=== PATIENT | female | born 1995 | race African-American/Black ===

== ENCOUNTER → 2017-07-04 14:56 | Outpatient (CLI) | payer OTHER ==
[2017-07-04 16:04] LABS: UDS - AMPHET NEGATIVE QUAL (NEGATIVE); UDS - BARB NEGATIVE QUAL (NEGATIVE); UDS - BENZO NEGATIVE QUAL (NEGATIVE); UDS - COCAINE NEGATIVE QUAL (NEGATIVE); UDS - METH NEGATIVE QUAL (NEGATIVE); UDS - OPIATE NEGATIVE QUAL (NEGATIVE); UDS - PCP NEGATIVE QUAL (NEGATIVE); UDS - THC NEGATIVE QUAL (NEGATIVE)
[2017-07-04 16:18] LABS: APPEARANCE HAZY (CLEAR); COLOR YELLOW (YELLOW)
[2017-07-04 16:19] LABS: BILIRUBIN NEGATIVE (NEGATIVE); GLUCOSE NEGATIVE (NEGATIVE); KETONE NEGATIVE (NEGATIVE); LEUKOCYTE ESTERASE 2+ (NEGATIVE); NITRITE NEGATIVE (NEGATIVE); PROTEIN NEGATIVE (NEGATIVE); UROBILINOGEN NORMAL (NORMAL)
[2017-07-04 16:20] LABS: AMORPHOUS SEDIMENT <1+ /lpf (NONE SEEN); BACTERIA FEW /hpf (NONE SEEN); EPITHELIAL CELLS 0-5 /hpf (0-5)
== END | disposition home or self-care (01) ==
LOC: D.LDO 14:56
PROVIDERS: Obstetrics & Gynecology
DX: Z34.90 Encounter for supervision of normal pregnancy, unspecified, unspecified trimester (principal); R10.9 Unspecified abdominal pain

== ENCOUNTER 2018-07-28 16:08 | Emergency (ER) | payer MEDICAID ==
[~2018-07-28] VITALS: Ht 152.4 cm; Wt 53.6 kg
[2018-07-28 16:13] VITALS: BP 103/80; Ht 152.4 cm; Wt 53.6 kg
[2018-07-28 16:40] LABS: BASOPHILS 0.5 % (0-2); EOSINOPHILS 0.9 % (0-7); HEMATOCRIT 36.2 % (36.0-48.0); HEMOGLOBIN 12.3 g/dL (12-16); LYMPHOCYTES 30.9 % (15-50); MCH 28.7 pg (26.0-34.0); MCV 84.6 fL (80.0-100.0); MONOCYTES 8.3 % (2-11); NEUTROPHILS 59.4 % (40-80); PLATELET COUNT 220 10x3/uL (130-400); RBC 4.28 10x6/uL (4.00-5.40); RDW 12.7 % (11.5-14.5); WBC 4.2 10x3/uL (4.8-10.8)
[2018-07-28] MEDS ORDERED: TORADOL10 MG PO (17:27)
== END 2018-07-28 18:45 | disposition home or self-care (01) ==
LOC: D.ER 16:08
PROVIDERS: Emergency Medicine
DX: N93.9 Abnormal uterine and vaginal bleeding, unspecified (principal); N94.6 Dysmenorrhea, unspecified

== ENCOUNTER 2019-06-19 19:23 | Emergency (ER) | payer SELFPAY ==
[~2019-06-19] VITALS: Ht 152.4 cm; Wt 58.2 kg
[~2019-06-19 19:23] MED LIST: TORADOL10 MG PO
[2019-06-19 19:31] VITALS: Ht 152.4 cm; Wt 58.2 kg
[2019-06-19 20:22] LABS: BASOPHILS 0.1 % (0-2); EOSINOPHILS 0.6 % (0-7); HEMATOCRIT 33.1 % (36.0-48.0); HEMOGLOBIN 11.4 g/dL (12-16); IMMATURE GRANULOCYTES 0.3 % (0-5); LYMPHOCYTES 16.8 % (15-50); MCH 29.3 pg (26.0-34.0); MCHC 34.4 g/dL (31.0-37.0); MCV 85.1 fL (80.0-100.0); MEAN PLATELET VOLUME 10.2 fL (7.4-10.4); MONOCYTES 6.4 % (2-11); NEUTROPHILS 75.8 % (40-80); PLATELET COUNT 200 10x3/uL (130-400); RBC 3.89 10x6/uL (4.00-5.40); RDW 12.7 % (11.5-14.5)
[2019-06-19 20:34] LABS: APPEARANCE CLEAR (CLEAR); BACTERIA MODERATE /hpf (NONE SEEN); BILIRUBIN NEGATIVE (NEGATIVE); COLOR YELLOW (YELLOW); EPITHELIAL CELLS 0-5 /hpf (0-5); GLUCOSE NEGATIVE (NEGATIVE); KETONE NEGATIVE (NEGATIVE); NITRITE NEGATIVE (NEGATIVE); PROTEIN NEGATIVE (NEGATIVE); RED CELLS - URINE OCC /hpf (0-5); UROBILINOGEN NORMAL (NORMAL); WHITE CELLS - URINE 0-5 /hpf (0-5)
[2019-06-19 20:34] LABS: ALKALINE PHOSPHATASE 55 U/L (46-116); ALT (SGPT) 10 U/L (10-68); BILIRUBIN - TOTAL 0.14 mg/dL (0.2-1.3); CALC OSMOLALITY 267 mosm/kg (275-300); CALCIUM 8.6 mg/dL (8.5-10.1); CARBON DIOXIDE 26.3 mmol/L (21.0-32.0); CHLORIDE - SERUM 103 mmol/L (98-107); CREATININE - SERUM 0.8 mg/dL (0.6-1.3); GLUCOSE 76 mg/dL (74-106); POTASSIUM - SERUM 3.4 mmol/L (3.5-5.1); PROTEIN - SERUM 6.7 g/dL (6.4-8.2); SODIUM 135 mmol/L (136-145); UREA NITROGEN 9 mg/dL (7-18); eGFR NON AFRICAN AMERICAN > 90 mL/min (90-120)
[2019-06-19 21:00] LABS: HCG - QUANTITATIVE (MATERNAL) 16136 mIU/mL
[2019-06-19 23:49] VITALS: BP 111/71
[2019-06-23 16:08] LABS: CHLAMYDIA TRACHOMATIS, NAA Negative (Negative)
== END 2019-06-19 23:35 | disposition home or self-care (01) ==
LOC: D.ER 19:23
PROVIDERS: Family Medicine
DX: O26.852 Spotting complicating pregnancy, second trimester (principal); Z3A.16 16 weeks gestation of pregnancy; Z20.2 Contact with and (suspected) exposure to infections with a predominantly sexual mode of transmission

== ENCOUNTER → 2019-08-13 08:49 | Outpatient (CLI) | payer MEDICAID ==
[2019-06-19 19:31] VITALS: BMI 25.0
[2019-08-13 12:37] LABS: APPEARANCE HAZY (CLEAR); BACTERIA MODERATE /hpf (NONE SEEN); BILIRUBIN NEGATIVE (NEGATIVE); COLOR YELLOW (YELLOW); EPITHELIAL CELLS 0-5 /hpf (0-5); GLUCOSE NEGATIVE (NEGATIVE); KETONE NEGATIVE (NEGATIVE); MUCUS <1+ /lpf (NONE SEEN); NITRITE NEGATIVE (NEGATIVE); PROTEIN NEGATIVE (NEGATIVE); RED CELLS - URINE OCC /hpf (0-5); UROBILINOGEN NORMAL (NORMAL); WHITE CELLS - URINE 0-5 /hpf (0-5); YEAST >1+ WITH HYPHAE /hpf (NONE SEEN)
[2019-08-17 17:08] LABS: CHLAMYDIA TRACHOMATIS, NAA Negative (Negative)
== END | disposition home or self-care (01) ==
LOC: D.LDO 08:49
PROVIDERS: ATTEND Obstetrics & Gynecology
DX: O26.899 Other specified pregnancy related conditions, unspecified trimester (principal); Z3A.00 Weeks of gestation of pregnancy not specified; R04.0 Epistaxis

== ENCOUNTER → 2019-09-18 12:52 | Outpatient (CLI) | payer MEDICAID ==
[2019-06-19 19:31] VITALS: BMI 25.0
[2019-09-18 13:37] LABS: APPEARANCE CLEAR (CLEAR); COLOR STRAW (YELLOW)
[2019-09-18 13:38] LABS: BILIRUBIN NEGATIVE (NEGATIVE); GLUCOSE NEGATIVE (NEGATIVE); KETONE NEGATIVE (NEGATIVE); NITRITE NEGATIVE (NEGATIVE); PROTEIN NEGATIVE (NEGATIVE); SPECIFIC GRAVITY 1.005 (1.005-1.020); UROBILINOGEN NORMAL (NORMAL)
== END | disposition home or self-care (01) ==
LOC: D.LDO 12:52
PROVIDERS: ATTEND Obstetrics & Gynecology
DX: O47.9 False labor, unspecified (principal)

== ENCOUNTER 2019-09-28 18:38 | Outpatient (CLI) | payer MEDICAID ==
[~2019-09-28] VITALS: Ht 152.4 cm; Wt 67.3 kg
[2019-09-28 18:45] VITALS: Ht 152.4 cm; Wt 67.3 kg
[2019-09-28 20:46] VITALS: BP 99/49
[2019-09-28 21:46] LABS: APPEARANCE CLEAR (CLEAR); BILIRUBIN NEGATIVE (NEGATIVE); COLOR YELLOW (YELLOW); GLUCOSE NEGATIVE (NEGATIVE); KETONE NEGATIVE (NEGATIVE); NITRITE NEGATIVE (NEGATIVE); PROTEIN TRACE mg/dL (NEGATIVE); UROBILINOGEN NORMAL (NORMAL)
[2019-09-28 22:04] LABS: BACTERIA FEW /hpf (NEGATIVE); EPITHELIAL CELLS OCC /hpf (0-5); RED CELLS - URINE OCC /hpf (0-5); WHITE CELLS - URINE 0-5 /hpf (NEGATIVE)
[2019-09-28 22:22] LABS: BASOPHILS 0 % (0-2); EOSINOPHILS 0.7 % (0-7); HEMOGLOBIN 9.7 g/dL (12-16); IMMATURE GRANULOCYTES 0.3 % (0-5); MCH 27.2 pg (26.0-34.0); MCHC 32.3 g/dL (31.0-37.0); MCV 84.3 fL (80.0-100.0); MEAN PLATELET VOLUME 10.1 fL (7.4-10.4); MONOCYTES 8.8 % (2-11); NEUTROPHILS 73.2 % (40-80); PLATELET COUNT 196 10x3/uL (130-400); RBC 3.56 10x6/uL (4.00-5.40); RDW 14.5 % (11.5-14.5); WBC 7.4 10x3/uL (4.8-10.8)
[2019-09-28 22:29] LABS: APTT 20.6 SECONDS (22.8-39.4); INR 1.01 (0.85-1.17); PROTIME 12.8 SECONDS (11.6-15.0)
[2019-10-05 10:31] VITALS: Ht 152.4 cm; Wt 67.3 kg
== END 2019-09-28 23:37 ==
LOC: D.LDO 18:38 → D.ER 18:38 → EDSTATUS 21:04 → D.LD 21:05 → D.LDO 23:37
PROVIDERS: Obstetrics & Gynecology; ATTEND Emergency Medicine
DX: O26.899 Other specified pregnancy related conditions, unspecified trimester (principal); Z3A.32 32 weeks gestation of pregnancy; R10.9 Unspecified abdominal pain

== ENCOUNTER → 2019-10-03 00:28 | Outpatient (CLI) | payer MEDICAID ==
[2019-09-28 18:45] VITALS: BMI 28.9
[2019-10-03 01:31] LABS: APPEARANCE CLEAR (CLEAR); COLOR YELLOW (YELLOW)
[2019-10-03 01:32] LABS: BILIRUBIN NEGATIVE (NEGATIVE); GLUCOSE NEGATIVE (NEGATIVE); KETONE LARGE mg/dL (NEGATIVE); NITRITE NEGATIVE (NEGATIVE); PROTEIN NEGATIVE (NEGATIVE); SPECIFIC GRAVITY 1.015 (1.005-1.020); UROBILINOGEN NORMAL (NORMAL)
== END | disposition home or self-care (01) ==
LOC: D.LDO 00:28
PROVIDERS: ATTEND Obstetrics & Gynecology
DX: O26.899 Other specified pregnancy related conditions, unspecified trimester (principal); O47.03 False labor before 37 completed weeks of gestation, third trimester; Z3A.32 32 weeks gestation of pregnancy; R35.0 Frequency of micturition; R51 Headache; R11.2 Nausea with vomiting, unspecified

== ENCOUNTER 2019-10-05 05:47 | Inpatient (IN) | payer MEDICAID ==
[~2019-10-05] VITALS: Ht 152.4 cm; Wt 67.1 kg
[2019-10-05 07:02] LABS: BASOPHILS 0.1 % (0-2); EOSINOPHILS 0.5 % (0-7); HEMATOCRIT 30.3 % (36.0-48.0); HEMOGLOBIN 9.4 g/dL (12-16); IMMATURE GRANULOCYTES 0.1 % (0-5); LYMPHOCYTES 21.4 % (15-50); MCH 26.7 pg (26.0-34.0); MCV 86.1 fL (80.0-100.0); MEAN PLATELET VOLUME 10.2 fL (7.4-10.4); MONOCYTES 10.5 % (2-11); NEUTROPHILS 67.4 % (40-80); PLATELET COUNT 192 10x3/uL (130-400); RBC 3.52 10x6/uL (4.00-5.40); RDW 15.2 % (11.5-14.5); WBC 7.3 10x3/uL (4.8-10.8)
[2019-10-05 08:21] LABS: UDS - AMPHET NEGATIVE QUAL (NEGATIVE); UDS - BARB NEGATIVE QUAL (NEGATIVE); UDS - BENZO NEGATIVE QUAL (NEGATIVE); UDS - COCAINE NEGATIVE QUAL (NEGATIVE); UDS - OPIATE NEGATIVE QUAL (NEGATIVE); UDS - PCP NEGATIVE QUAL (NEGATIVE); UDS - THC NEGATIVE QUAL (NEGATIVE)
[2019-10-05 08:37] LABS: APPEARANCE CLEAR (CLEAR); BACTERIA FEW /hpf (NEGATIVE); BILIRUBIN NEGATIVE (NEGATIVE); COLOR YELLOW (YELLOW); EPITHELIAL CELLS 0-5 /hpf (0-5); GLUCOSE NEGATIVE (NEGATIVE); KETONE MODERATE mg/dL (NEGATIVE); MUCUS <1+ /lpf (NONE SEEN); NITRITE NEGATIVE (NEGATIVE); PROTEIN NEGATIVE (NEGATIVE); RED CELLS - URINE 0-5 /hpf (0-5); SPECIFIC GRAVITY 1.015 (1.005-1.020); WHITE CELLS - URINE 0-5 /hpf (NEGATIVE)
[2019-10-05 10:31] VITALS: BP 100/51; Ht 152.4 cm; Wt 67.1 kg
[2019-10-05 13:35] VITALS: BP 107/71
--- NOTE | 2019-10-05 13:35 | NUR ---
PT RECEIVED FROM L&D IN STABLE CONDITION. PT W/ NO C/O AT THIS TIME. FUNDUS FIRM AT -1 MIDLINE WITH SCANT BLEEDING. PT STATES PAIN AT A 0.
--- NOTE | 2019-10-05 14:50 | NUR ---
PT UP TO RESTROOM & ABLE TO VOID W/O DIFFICULTY. PT THEN UP WALKING IN HALLS WITH STEADY GAIT.
[2019-10-05 16:00] VITALS: BP 95/57
--- NOTE | 2019-10-05 16:04 | NUR ---
PT IN SHOWER AT THIS TIME.
--- NOTE | 2019-10-05 16:20 | NUR ---
PT OUT OF SHOWER. PT W/ NO C/O AT THIS TIME. PT IN STABLE CONDITION.
--- NOTE | 2019-10-05 17:33 | NUR ---
pt c/o pain, pain meds given see emar. pt awake & alert w/ no other c/o at this time. srupx2 call light w/in reach.
--- NOTE | 2019-10-05 17:50 | NUR ---
PT'S S.O. VISITING AT THIS TIME.
--- NOTE | 2019-10-05 18:16 | NUR ---
PT SITTING UP IN BED W/ NO C/O AT THIS TIME. PT W/ SEVERAL VISITORS IN ROOM AT THIS TIME. SRUPX2 CALL LIGHT W.IN REACH.
--- NOTE | 2019-10-05 18:59 | NUR ---
PM ROUNDS MADE, PT VISITING WITH FAMILY AND FRIENDS, INFORMED PT THAT I WILL BE BACK SHORTLY TO DO ASSESSMENT, PT VERBALIZES UNDERSTANDING, DENIES NEEDS AT THIS TIME
[2019-10-05 20:00] VITALS: BP 115/71
--- NOTE | 2019-10-05 20:00 | NUR ---
PT IS AWAKE AND ALERT RESTING IN BED. FOB AT BEDSIDE. ASSESSMENT COMPLETE PER FLOWSHEET. VSS. BS CLEAR IN ALL LOBES. BS ACTIVE X4 QUADRANTS. FUNDUS FIRM AND 2 BELOW UMB. SCANT AMOUNT OF LOCHIA NOTED ON PERIPAD. PT REPORTS THAT SHE IS PASSING GAS AND VOIDING WITHOUT DIFFICULTY. SL TO R. AC. PT REPORTS THAT THE S/L IS UNCOMFORTABLE WHEN SHE IS BENDING HER ARM. THE SITE IS WITHOUT OUT REDNESS OR EDEMA. PT INFORMED THAT SHE WILL HAVE A CBC DRAWN IN THE MORNING AND THAT IF HER BLOOD COUNTS COME BACK LOW THAT THE IV MAY HAVE TO BE RESITED. PT STATED THAT SHE DOES NOT WANT THE SL TO BE REMOVED AT THIS TIME. POC DISCUSSED AT THIS TIME INCLUDING PAIN MANAGEMENT, LAB DRAW IN THE AM. WATER PITCHER FILLED. PT INSTRUCTED TO NOTIFY NURSE WITH ANY PROBLEMS, NEEDS, OR CONCERNS, VERBALIZED UNDERSTANDING. BED IN LOW POSITION, SRUP X2, CALL LIGHT AND TELEPHONE WITHIN PT'S REACH.
--- NOTE | 2019-10-05 21:05 | NUR ---
PT REQUESTING A BREAST PUMP. INSTRUCTED PT TO NOTIFY NBN TO GET ONE. NO OTHER REQUEST MADE AT THIS TIME. VERBALIZED UNDERSTANDING.
--- NOTE | 2019-10-05 21:45 | NUR ---
PT SITTING IN CHAIR PUMPING ONE BREAST. PT REPORTS THAT HER ARM WITH THE SL HURTS TO BEND TO PUMP BOTH BREAST. PT REQUEST THAT THE SL BE REMOVED. PT WAS REMINDED THAT AM LAB WILL BE DRAWN AND IF HER LABS ARE LOW THE IV MAY HAVE TO BE PUT BACK IN. PT STATED THAT SHE WAS OK WITH IT BEING REMOVED. SL REMOVED AT THIS TIME PER PT REQUEST. NO OTHER REQUEST MADE. INSTRUCTED PT TO NOTIFY NURSE WITH ANY PROBLEMS, NEEDS, OR CONCERNS. VERBALIZED UNDERSTANDING.
--- NOTE | 2019-10-05 22:20 | NUR ---
PT AMB TO DIABETES EDUCATOR, REPORTS JUST FINISHED PUMPING, PT SHOWN NSY TO TAKE BREAST MILK FOR STORAGE, THIS RN AND PT TO NSY, BREAST MILK LABELED AND LILLY FIELD, RN PROPERLY STORES BREAST MILK, PT BACK TO ROOM, C/O CRAMPING, WILL ADM AVA WHEN DUE, PT VERBALIZES UNDERSTANDING, STATES "I AM GOING TO TRY AND TAKE A LITTLE NAP BEFORE I HAVE TO PUMP AGAIN", DENIES NEEDS AT THIS TIME
--- NOTE | 2019-10-06 00:18 | NUR ---
PT SITTING UP IN CHAIR PUMPING BREAST. WATER PITCHER FILLED. MOTRIN 600MG GIVEN PO FOR C/O ABD CRAMPING. NO OTHER REQUEST MADE. PT INSTRUCTED TO NOTIFY NURSE WITH ANY OTHER PROBLEMS, NEEDS, OR CONCERNS. VERBALIZED UNDERSTANDING.
--- NOTE | 2019-10-06 01:12 | NUR ---
PT RESTING COMFORTABLY IN BED WITH LIGHTS OFF. BED IN LOW POSTION, SRUP X2, CALL LIGHT.
--- NOTE | 2019-10-06 03:07 | NUR ---
PT RESTING IN BED WITH EYES CLOSED. RESPIRATIONS EVEN AND UNLABORED. NO DISTRESS NOTED. BED IN LOW POSITION. SRUP X2, CALL LIGHT WITHIN PTS REACH.
--- NOTE | 2019-10-06 03:47 | NUR ---
PT RESTING IN BED WITH EYES CLOSED. RESPIRATIONS EVEN AND UNLABORED. BED IN LOW POSITION, SRUP X2, CALL LIGHT WITHIN PTS REACH.
--- NOTE | 2019-10-06 06:02 | NUR ---
PT RESTING IN BED WITH EYES CLOSED. RESPIRATIONS EVEN AND UNLABORED. NO DISTRESS NOTED. BED IN LOW POSITION. SRUP X2. CALL LIGHT WITHIN PTS REACH.
--- NOTE | 2019-10-06 07:25 | NUR ---
LAB IN ROOM AT THIS TIME.
[2019-10-06 07:58] LABS: BASOPHILS 0.1 % (0-2); EOSINOPHILS 0.8 % (0-7); HEMATOCRIT 28.4 % (36.0-48.0); HEMOGLOBIN 8.9 g/dL (12-16); IMMATURE GRANULOCYTES 0.1 % (0-5); LYMPHOCYTES 18.6 % (15-50); MCH 26.5 pg (26.0-34.0); MCHC 31.3 g/dL (31.0-37.0); MCV 84.5 fL (80.0-100.0); MEAN PLATELET VOLUME 10.3 fL (7.4-10.4); MONOCYTES 10.2 % (2-11); NEUTROPHILS 70.2 % (40-80); PLATELET COUNT 188 10x3/uL (130-400); RBC 3.36 10x6/uL (4.00-5.40); RDW 15.1 % (11.5-14.5); WBC 7.4 10x3/uL (4.8-10.8)
[2019-10-06 08:11] LABS: RAPID PLASMA REAGIN Non Reactive (Non Reactive)
--- NOTE | 2019-10-06 08:45 | NUR ---
PT ON THE PHONE W/ SPIRITISM & PUMPING AT THIS TIME.
[2019-10-06 09:00] VITALS: BP 108/62
--- NOTE | 2019-10-06 09:18 | NUR ---
M/S FOR DR. REINOSO FOR D/C ORDER.
--- NOTE | 2019-10-06 09:50 | NUR ---
DR. REINOSO RETURNED CALL & GAVE TELEPHONE ORDER APRIL D/C PT TODAY.
--- NOTE | 2019-10-06 12:00 | NUR ---
D/C INSTRUCTIONS REVIEWED W/ PT AT THIS TIME. PT GIVEN WRITTEN & VERBAL INSTRUCTIONS. PT VOICED UNDERSTNADING OF ALL INSTRUCTIONS. PT GIVEN BREASTMILK IN NSY FRIDGE TO TAKE AT THIS TIME.
--- NOTE | 2019-10-06 12:14 | NUR ---
PT DISCHARGED & WHEELED OFF UNIT BY VOLUNTEER AT THIS TIME. PT IN STABLE CONDITION.
== END 2019-10-06 12:12 | disposition home or self-care (01) | DRG 807 ==
LOC: D.LDO 05:47 → D.LD 06:43 → D.WS 13:35
PROVIDERS: Student in an Organized Health Care Education/Training Program; ADMIT Obstetrics & Gynecology; ATTEND Obstetrics & Gynecology
PROC: 10E0XZZ Delivery of Products of Conception, External Approach (ICD-10-PCS; principal; 2019-10-05)
DX: O60.14X0 Preterm labor third trimester with preterm delivery third trimester, not applicable or unspecified (principal); Z37.0 Single live birth; Z3A.33 33 weeks gestation of pregnancy; O26.893 Other specified pregnancy related conditions, third trimester; Z67.91 Unspecified blood type, Rh negative; O69.81X0 Labor and delivery complicated by cord around neck, without compression, not applicable or unspecified

== ENCOUNTER 2020-05-01 20:26 | Emergency (ER) | payer MEDICAID ==
[~2020-05-01] VITALS: Ht 152.4 cm; Wt 63.5 kg
[2020-05-01 20:30] VITALS: Ht 152.4 cm; Wt 63.5 kg
--- NOTE | 2020-05-01 20:50 | NUR ---
PROVIDER TO BEDSIDE.
[2020-05-01] MEDS ORDERED: HYDROCODON-ACE1 EA10 PO (21:24)
[2020-05-01] MEDS ORDERED: KEFLEX500 MG PO (21:24)
[2020-05-01 22:33] VITALS: BP 121/82
== END 2020-05-01 21:50 | disposition home or self-care (01) ==
LOC: OBSVTIME → D.ER 20:26 → D.M2 21:33 → D.ER 21:33 → OBSVTIME 21:33 → D.ER 21:50
DX: S61.412A Laceration without foreign body of left hand, initial encounter (principal); W26.0XXA Contact with knife, initial encounter; Y93.9 Activity, unspecified; Y92.9 Unspecified place or not applicable

== ENCOUNTER 2020-05-06 13:24 | Emergency (ER) | payer MEDICAID ==
[~2020-05-06] VITALS: Ht 152.4 cm; Wt 63.5 kg
[~2020-05-06 13:24] MED LIST changes: +HYDROCODON-ACE1 EA10 PO; +KEFLEX500 MG PO
[2020-05-06 13:57] VITALS: Ht 152.4 cm; Wt 63.5 kg
[2020-05-06 15:37] VITALS: BP 119/77
== END 2020-05-06 15:48 | disposition home or self-care (01) ==
LOC: D.ER 13:24
DX: S61.011A Laceration without foreign body of right thumb without damage to nail, initial encounter (principal); W26.0XXA Contact with knife, initial encounter; Y93.9 Activity, unspecified; Y92.9 Unspecified place or not applicable

== ENCOUNTER 2020-06-01 19:18 | Emergency (ER) | payer MEDICAID ==
[~2020-06-01] VITALS: Ht 152.4 cm; Wt 59.1 kg
[2020-06-01 19:32] VITALS: Ht 152.4 cm; Wt 59.1 kg
[2020-06-01] MEDS ORDERED: IBUPROFEN800 MG PO (20:16)
[2020-06-01] MEDS ORDERED: MUPIROCIN22 GM TOPICAL (20:16)
[2020-06-01 20:55] VITALS: BP 119/76
== END 2020-06-01 20:55 | disposition home or self-care (01) ==
LOC: D.ER 19:18
DX: S41.112A Laceration without foreign body of left upper arm, initial encounter (principal); W45.8XXA Other foreign body or object entering through skin, initial encounter; Y93.9 Activity, unspecified; Y92.9 Unspecified place or not applicable

== ENCOUNTER → 2020-08-27 | Emergency (ER) | payer MEDICAID ==
[~2020-08-27] VITALS: Ht 152.4 cm; Wt 62.6 kg
[~2020-08-27] MED LIST changes: +IBUPROFEN800 MG PO; +MUPIROCIN22 GM TOPICAL; +VOLTAREN75 MG PO
[2020-08-27 19:14] VITALS: BP 118/67; Ht 152.4 cm; Wt 62.6 kg
[2020-08-27 19:38] LABS: BASOPHILS 0.2 % (0-2); EOSINOPHILS 1.3 % (0-7); HEMATOCRIT 35.6 % (36.0-48.0); HEMOGLOBIN 11.7 g/dL (12-16); IMMATURE GRANULOCYTES 0.2 % (0-5); LYMPHOCYTES 32.1 % (15-50); MCH 28.5 pg (26.0-34.0); MCHC 32.9 g/dL (31.0-37.0); MCV 86.8 fL (80.0-100.0); MEAN PLATELET VOLUME 10.1 fL (7.4-10.4); MONOCYTES 9.5 % (2-11); NEUTROPHILS 56.7 % (40-80); RDW 12.6 % (11.5-14.5); WBC 5.3 10x3/uL (4.8-10.8)
[2020-08-27 19:39] LABS: PLATELET COUNT 257 10x3/uL (130-400)
[2020-08-27 19:43] LABS: BILIRUBIN NEGATIVE (NEGATIVE); KETONE NEGATIVE (NEGATIVE); NITRITE NEGATIVE (NEGATIVE); UROBILINOGEN NORMAL mg/dL (< 2)
[2020-08-27 19:44] LABS: CALC OSMOLALITY 270 mosm/kg (275-300); CALCIUM 9.4 mg/dL (8.5-10.1); CARBON DIOXIDE 29.7 mmol/L (21.0-32.0); CHLORIDE - SERUM 104 mmol/L (98-107); GLUCOSE 97 mg/dL (74-106); HCG URINE NEGATIVE (NEGATIVE); SODIUM 136 mmol/L (136-145); UREA NITROGEN 9 mg/dL (7-18); eGFR NON AFRICAN AMERICAN 73 mL/min (90-120)
[2020-08-27 19:54] LABS: ALBUMIN 3.9 g/dL (3.4-5.0); ALKALINE PHOSPHATASE 55 U/L (30-120); ALT (SGPT) 10 U/L (10-68); AMYLASE - SERUM 50 U/L (25-115); BILIRUBIN - TOTAL 0.24 mg/dL (0.2-1.3); LIPASE 107 U/L (73-393); PROTEIN - SERUM 7.7 g/dL (6.4-8.2); TROPONIN-I < 0.017 ng/mL (0.000-0.060)
== END | disposition home or self-care (01) ==
LOC: D.ER 19:09
PROVIDERS: Family Medicine
DX: R10.32 Left lower quadrant pain (principal)

== ENCOUNTER 2021-05-13 08:04 | Emergency (ER) | payer MEDICAID ==
[~2021-05-13] VITALS: Ht 152.4 cm; Wt 55.5 kg
[~2021-05-13 08:04] MED LIST changes: +HYDROCODON-ACE1 EAC7 PO; +TOPAMAX50 MG PO; +ZOFRAN ODT4 MG/UDTAB PO
[2021-05-13 08:17] VITALS: BP 126/84; Ht 152.4 cm; Wt 55.5 kg
[2021-05-13] MEDS ORDERED: IBUPROFEN800 MG PO (08:38)
[2021-05-13] MEDS ORDERED: ACETAMINOPHEN500 M1 PO (08:38)
[2021-05-13] MEDS ORDERED: CYCLOBENZAPRINE10 MG PO (08:38)
== END 2021-05-13 09:47 | disposition home or self-care (01) ==
LOC: D.ER 08:04
DX: R51.9 Headache, unspecified (principal)